=== PATIENT | female | born 1960 | race Caucasian/White ===

== ENCOUNTER 2017-01-16 13:55 | Emergency (ER) | payer OTHER ==
[2017-01-16] MEDS ORDERED: ONDANSETRON 4 MG TAB.RAPDIS PO ONE (14:48)
--- NOTE | 2017-01-16 14:53 | ER Document Report ---
ED Medical Screen (RME) - General Chief Complaint: Nausea/Vomiting Stated Complaint: NAUSEA, VOMITTING Time Seen by Provider: 01/16/17 14:43 Notes: Patient is complaining of a headache and vomiting. She is visiting from [place] and has a condition, CIDP, she was treated with IVIG weekly. Her symptoms are usually brought on by changes in the weather which she says happened on Friday and that is when she developed her headache and then yesterday, began vomiting and has been vomiting nonstop ever since. No diarrhea. No fevers. Patient says that her symptoms are relieved by Zofran or Compazine. History of appendectomy and cholecystectomy. TRAVEL OUTSIDE OF THE [place] IN LAST 30 DAYS: No - Related Data Allergies/Adverse Reactions: adhesive [Adhesive] Allergy (Verified 01/16/17 13:59) amoxicillin [Amoxicillin] Allergy (Verified 01/16/17 13:59) clindamycin [Clindamycin] Allergy (Verified 01/16/17 13:59) lincomycin [Lincomycin] Allergy (Verified 01/16/17 13:59) magnesium [Magnesium] Allergy (Verified 01/16/17 13:59) meloxicam [From Mobic] Allergy (Verified 01/16/17 13:59) sumatriptan [From Imitrex] Allergy (Verified 01/16/17 13:59) sumatriptan succinate [From Imitrex] Allergy (Verified 01/16/17 13:59) Past Medical History - Social History Drug Abuse: None Renal/ Medical History: Denies: Hx Peritoneal Dialysis Past Surgical History: Reports: Hx Appendectomy - Immunizations Hx Diphtheria, Pertussis, Tetanus Vaccination: Yes Physical Exam - Vital signs Vitals: Temp Pulse Resp BP Pulse Ox 97.9 F 96 16 145/93 H 96 01/16/17 13:59 01/16/17 13:59 01/16/17 13:59 01/16/17 13:59 01/16/17 13:59 Course - Vital Signs Vital signs: Temp Pulse Resp BP Pulse Ox 97.9 F 96 16 145/93 H 96 01/16/17 13:59 01/16/17 13:59 01/16/17 13:59 01/16/17 13:59 01/16/17 13:59
[2017-01-16] MEDS: NORMAL SALINE 1000 ML 1,000 ML IV PRN ×2 (16:13→16:47)
[2017-01-16] MEDS ORDERED: PROMETHAZINE HCL INJ 25 MG/1 ML VIAL IM ONE (16:28)
[2017-01-16 16:54] LABS: ABSOLUTE LYMPHOCYTES (AUTO) 1.3 10^3/uL (0.5-4.7); ABSOLUTE MONOCYTES (AUTO) 0.4 10^3/uL (0.1-1.4); ABSOLUTE NEUT (AUTO) 5.3 10^3/uL (1.7-8.2); BASOPHILS % (AUTO) 0.7 % (0-2); EOSINOPHILS % (AUTO) 0.1 % (0-6); HEMATOCRIT 40.3 % (36.0-47.0); HEMOGLOBIN 13.6 g/dL (12.0-15.5); HGB HCT DIFFERENCE 0.5; LYMPHOCYTES % (AUTO) 17.9 % (13-45); MEAN CORPUSCULAR HGB CONC 33.7 g/dL (32.0-36.0); MEAN CORPUSCULAR VOLUME 95 fl (80-97); MONOCYTES % (AUTO) 5.8 % (3-13); RED BLOOD COUNT 4.24 10^6/uL (3.72-5.28); RED CELL DISTRIBUTION WIDTH 14.8 % (11.5-14.0); SEGMENTED NEUTROPHILS % (AUTO) 75.5 % (42-78)
[2017-01-16 17:06] LABS: ALANINE AMINOTRANSFERASE 41 U/L (9-52); ALKALINE PHOSPHATASE 91 U/L (38-126); ANION GAP 10 (5-19); ASPARTATE AMINO TRANSFERASE 58 U/L (14-36); BILIRUBIN,DIRECT 0.4 mg/dL (0.0-0.4); BILIRUBIN,TOTAL 0.7 mg/dL (0.2-1.3); BLOOD UREA NITROGEN 16 mg/dL (7-20); CALCIUM 9.1 mg/dL (8.4-10.2); CARBON DIOXIDE 28 mmol/L (22-30); CHLORIDE 102 mmol/L (98-107); CREATININE RESULT 0.69 mg/dL (0.52-1.25); GLUCOSE 96 mg/dL (75-110); POTASSIUM 4.8 mmol/L (3.6-5.0); SODIUM 140.4 mmol/L (137-145); TOTAL PROTEIN 9.2 g/dL (6.3-8.2)
[2017-01-16] MEDS ORDERED: DIPHENHYDRAMINE HCL 50 MG/ML VIAL IV ONE (17:31)
[2017-01-16] MEDS ORDERED: METOCLOPRAMIDE HCL INJ/PF 10 MG/2 ML SDV IV ONE (17:31)
--- NOTE | 2017-01-16 18:43 | ER Document Report ---
ED GI/ - General Mode of Arrival: Ambulatory Information source: Patient TRAVEL OUTSIDE OF THE [place] IN LAST 30 DAYS: No <JARRELL HAWKINS - Last Filed: 01/16/17 19:30> <LAURO DUARTE - Last Filed: 01/16/17 20:46> - General Chief Complaint: Nausea/Vomiting Stated Complaint: NAUSEA, VOMITTING Time Seen by Provider: 01/16/17 14:43 Notes: Patient is a 56-year-old female with chronic demyelinating polyneuropathy who gets IVIG weekly who presents to the ER today for headache, nausea and vomiting for 2 days. Patient states that this happens to her whenever she gets IVIG and and travel down here to [place] from [place] where she lives, and going through any type of bad weather. She states that 3 days ago there was normal she was driving down here and she developed a headache afterwards, the next day developing the vomiting and the headache worsened. She states that this is exactly what happens when she goes through bad whether after getting IVIG and that she has been tapped 3 times for this never finding anything. She states that she used to be on migraine medications, but is no longer. She says she has had to get lumbar punctures before for this which were always negative. She denies fever/chills, diarrhea, neck pain. (JARRELL HAWKINS) - Related Data Allergies/Adverse Reactions: adhesive [Adhesive] Allergy (Verified 01/16/17 13:59) amoxicillin [Amoxicillin] Allergy (Verified 01/16/17 13:59) clindamycin [Clindamycin] Allergy (Verified 01/16/17 13:59) lincomycin [Lincomycin] Allergy (Verified 01/16/17 13:59) magnesium [Magnesium] Allergy (Verified 01/16/17 13:59) meloxicam [From Mobic] Allergy (Verified 01/16/17 13:59) sumatriptan [From Imitrex] Allergy (Verified 01/16/17 13:59) sumatriptan succinate [From Imitrex] Allergy (Verified 01/16/17 13:59) Past Medical History - General Information source: Patient - Social History Smoking Status: Unknown if Ever Smoked Drug Abuse: None Family History: Reviewed & Not Pertinent Patient has suicidal ideation: No Patient has homicidal ideation: No Renal/ Medical History: Denies: Hx Peritoneal Dialysis Past Surgical History: Reports: Hx Appendectomy - Immunizations Hx Diphtheria, Pertussis, Tetanus Vaccination: Yes <JARRELL HAWKINS - Last Filed: 01/16/17 19:30> Review of Systems - Review of Systems Constitutional: No symptoms reported EENT: No symptoms reported Cardiovascular: No symptoms reported Respiratory: No symptoms reported Gastrointestinal: See HPI Genitourinary: No symptoms reported Female Genitourinary: No symptoms reported Musculoskeletal: No symptoms reported Skin: No symptoms reported Hematologic/Lymphatic: No symptoms reported Neurological/Psychological: See HPI <JARRELL HAWKINS - Last Filed: 01/16/17 19:30> Physical Exam <JARRELL HAWKINS - Last Filed: 01/16/17 19:30> <LAURO DUARTE - Last Filed: 01/16/17 20:46> - Vital signs Vitals: Temp Pulse Resp BP Pulse Ox 97.9 F 96 16 145/93 H 96 01/16/17 13:59 01/16/17 13:59 01/16/17 13:59 01/16/17 13:59 01/16/17 13:59 - Notes Notes: PHYSICAL EXAMINATION: GENERAL: pale, vomiting, in mild acute distress. HEAD: Atraumatic, normocephalic. EYES: Pupils equal round and reactive to light, extraocular movements intact, sclera anicteric, conjunctiva are normal. NECK: Normal range of motion, supple without lymphadenopathy LUNGS: CTAB and equal. No wheezes rales or rhonchi. HEART: Regular rate and rhythm without murmurs ABDOMEN: Soft, no tenderness. No guarding, no rebound BACK: no vertebral tenderness, normal ROM GI/: no CVA tenderness NEUROLOGICAL: Cranial nerves grossly intact. Normal sensory/motor exams. Good and equal strength bilaterally, Kernig and Brudzinski's signs negative, Romberg' s test normal, normal heel to castillo testing PSYCH: Normal mood, normal affect. SKIN: Warm, Dry, normal turgor, no rashes or lesions noted (JARRELL HAWKINS) Course - Laboratory Result Diagrams: 01/16/17 16:37 01/16/17 16:37 <JARRELL HAWKINS - Last Filed: 01/16/17 19:30> - Laboratory Result Diagrams: 01/16/17 16:37 01/16/17 16:37 <LAURO DUARTE - Last Filed: 01/16/17 20:46> - Re-evaluation Re-evalutation: 01/16/17 19:25 labwork is unremarkable, pt's blood cell count is normal today, patient is afebrile with normal vital signs. 2 L of fluid IV was given, nausea medication , pain medication, patient still has a headache but has not vomited since arriving. She is no longer pale. Patient states that the headache is now her only complaint. She needs to leave [facility] to get [place] to have her IVIG tomorrow. 01/16/17 19:28 01/16/17 19:[address] Lyons who agrees that it doesn't appear pt needs to be tapped at this time, pt agrees, states this is her normal headache, dilaudid ordered. care handed over to Lauro Duarte PA-C. (JARRELL HAWKINS) - Vital Signs Vital signs: Temp Pulse Resp BP Pulse Ox 97.9 F 96 16 145/93 H 96 01/16/17 13:59 01/16/17 13:59 01/16/17 13:59 01/16/17 13:59 01/16/17 13:59 - Laboratory Laboratory results interpreted by me: 01/16/17 01/16/17 01/16/17 16:37 16:37 18:08 RDW 14.8 H AST 58 H Total Protein 9.2 H Urine Ketones TRACE H Discharge <JARRELL HAWKINS - Last Filed: 01/16/17 19:30> <LAURO DUARTE - Last Filed: 01/16/17 20:46> - Discharge Clinical Impression: Headache Qualifiers: Headache type: unspecified Headache chronicity pattern: acute headache Intractability: not intractable Qualified Code(s): R51 - Headache Nausea and vomiting Qualifiers: Vomiting type: unspecified Vomiting Intractability: non-intractable Qualified Code(s): R11.2 - Nausea with vomiting, unspecified Condition: Stable Disposition: HOME, SELF-CARE Instructions: Intravenous (IV) Fluids ([facility]), Vomiting ([facility]) Additional Instructions: Return immediately for any new or worsening symptoms. Follow up with primary care provider, call tomorrow to make followup appointment.
[2017-01-16] MEDS ORDERED: HYDROMORPHONE HCL INJ/PF 2 MG/ML AMPULE IV ONE (18:58)
[2017-01-16 19:02] LABS: APPEARANCE,URINE CLEAR; BILIRUBIN,URINE NEGATIVE (NEGATIVE); GLUCOSE, URINE NEGATIVE (NEGATIVE); KETONES,URINE TRACE mg/dL (NEGATIVE); LEUKOCYTE ESTERASE,URINE NEGATIVE (NEGATIVE); NITRITE,URINE NEGATIVE (NEGATIVE); PROTEIN,URINE NEGATIVE (NEGATIVE); URINE SPECIFIC GRAVITY 1.008; UROBILINOGEN,URINE NEGATIVE mg/dL (<2.0)
[2017-01-16] MEDS ORDERED: ONDANSETRON HCL INJ/PF 4 MG/2 ML SDV IV ONE (19:15)
[2017-01-16] MEDS ORDERED: ONDANSETRON ODT 4 MG TAB (6 TAB/DSPK) PO PRN (20:45)
[2017-01-16] MEDS ORDERED: HYDROCODONE/ACETAMINOPHEN 5-325 MG 6 TAB/DSPK PO PRN (20:46)
[2017-01-16 21:11] VITALS: BP 119/67
== END 2017-01-16 21:25 | disposition home or self-care (01) ==
LOC: ER 13:55
DX: R11.2 Nausea with vomiting, unspecified (principal); R51 Headache; R23.1 Pallor; G61.81 Chronic inflammatory demyelinating polyneuritis; Z79.899 Other long term (current) drug therapy; Z88.0 Allergy status to penicillin; Z88.1 Allergy status to other antibiotic agents; Z91.048 Other nonmedicinal substance allergy status; Z88.8 Allergy status to other drugs, medicaments and biological substances; Z88.6 Allergy status to analgesic agent
CPT/HCPCS: 99283; 96372; 96361; 96374; 96375; 36415; 85025; 80053; 81001; J1200; S0119; J2765; J1170; J2550; J2405; J7030

== ENCOUNTER 2020-08-06 20:45 | Emergency (ER) | payer MEDICARE, OTHER ==
[2020-08-06] MEDS ORDERED: NORMAL SALINE 1000 ML 1,000 ML IV ONE (21:33)
[2020-08-06] MEDS ORDERED: DIPHENHYDRAMINE HCL 50 MG/ML VIAL IV ONE (21:33)
[2020-08-06] MEDS ORDERED: KETOROLAC TROMETHAMINE INJ/PF 30 MG/1 ML SDV IV ONE (21:33)
[2020-08-06] MEDS ORDERED: METOCLOPRAMIDE HCL INJ/PF 10 MG/2 ML SDV IV ONE (21:33)
--- NOTE | 2020-08-06 21:39 | ER Document Report ---
ED Medical Screen (RME) - General Chief Complaint: Headache Stated Complaint: SEVERE MIGRAINE, NAUSEA Time Seen by Provider: 08/06/20 21:25 TRAVEL OUTSIDE OF THE [place] IN LAST 30 DAYS: No - HPI Notes: Patient is a 60 y/o female with a hx of migraine headaches who presents with a migraine that began two days ago. Patient states her symptoms are typical of her usual migraine. She reports nausea, vomiting and photophobia. She denies chest pain, shortness of breath, blurred vision, weakness or numbness. She is not currently taking any medication for her migraines. She has a doctor's appointment this coming and a neurology appointment in August. - Related Data Allergies/Adverse Reactions: adhesive [Adhesive] Allergy (Verified 01/16/17 13:59) amoxicillin [Amoxicillin] Allergy (Verified 01/16/17 13:59) clindamycin [Clindamycin] Allergy (Verified 01/16/17 13:59) lincomycin [Lincomycin] Allergy (Verified 01/16/17 13:59) magnesium [Magnesium] Allergy (Verified 01/16/17 13:59) meloxicam [From Mobic] Allergy (Verified 01/16/17 13:59) sumatriptan [From Imitrex] Allergy (Verified 01/16/17 13:59) sumatriptan succinate [From Imitrex] Allergy (Verified 01/16/17 13:59) Past Medical History Renal/ Medical History: Denies: Hx Peritoneal Dialysis Past Surgical History: Reports: Hx Appendectomy - Immunizations Hx Diphtheria, Pertussis, Tetanus Vaccination: Yes Physical Exam - Vital signs Vitals: Temp Pulse Resp BP Pulse Ox 98.0 F 116 H 16 136/97 H 94 08/06/20 21:09 08/06/20 21:09 08/06/20 21:09 08/06/20 21:09 08/06/20 21:09 - General In distress: Mild - Respiratory Respiratory status: No respiratory distress - Neurological Cognition: Normal Orientation: AAOx4 Course - Re-evaluation Re-evalutation: I have greeted and performed a rapid initial assessment of this patient. A comprehensive ED assessment and evaluation of the patient, analysis of test results and completion of medical decision making process will be conducted by an additional ED providers. - Vital Signs Vital signs: Temp Pulse Resp BP Pulse Ox 98.0 F 116 H 16 136/97 H 94 08/06/20 21:09 08/06/20 21:09 08/06/20 21:09 08/06/20 21:09 08/06/20 21:09
--- NOTE | 2020-08-06 22:58 | ER Document Report ---
ED Headache - General Chief Complaint: Headache Stated Complaint: SEVERE MIGRAINE, NAUSEA Time Seen by Provider: 08/06/20 21:25 Mode of Arrival: Wheelchair Information source: Patient, Relative - Notes: 60-year-old woman presenting to the emergency department with a 1 week history of headache. She has a long history of migraine headaches and apparently changes in barometric pressure and also inability to keep down her medications has led to exacerbation of a severe migraine headache with photophobia, nausea and vomiting with throbbing head pain. She has had a long history of migraines and is usually able to control things with Phenergan and her usual medication. TRAVEL OUTSIDE OF THE [place] IN LAST 30 DAYS: No - Related Data Allergies/Adverse Reactions: adhesive [Adhesive] Allergy (Verified 01/16/17 13:59) amoxicillin [Amoxicillin] Allergy (Verified 01/16/17 13:59) clindamycin [Clindamycin] Allergy (Verified 01/16/17 13:59) lincomycin [Lincomycin] Allergy (Verified 01/16/17 13:59) magnesium [Magnesium] Allergy (Verified 01/16/17 13:59) meloxicam [From Mobic] Allergy (Verified 01/16/17 13:59) sumatriptan [From Imitrex] Allergy (Verified 01/16/17 13:59) sumatriptan succinate [From Imitrex] Allergy (Verified 01/16/17 13:59) Home Medications: Hydroxychloroquine, Vitamin D, Lisinopril, Nortriptyline, Valacyclovir, Fluoxetine, Topiramate Past Medical History - Social History Smoking Status: Never Smoker Family History: Reviewed & Not Pertinent Renal/ Medical History: Denies: Hx Peritoneal Dialysis Past Surgical History: Reports: Hx Appendectomy - Immunizations Hx Diphtheria, Pertussis, Tetanus Vaccination: Yes Review of Systems - Review of Systems Notes: Constitutional: Negative for fever. HENT: Negative for sore throat. Eyes: Negative for visual changes. Cardiovascular: Negative for chest pain. Respiratory: Negative for shortness of breath. Gastrointestinal: Negative for abdominal pain, vomiting or diarrhea. Genitourinary: Negative for dysuria. Musculoskeletal: Negative for back pain. Skin: Negative for rash. Neurological: See HPI. 10 point ROS negative except as marked above and in HPI. Physical Exam - Vital signs Vitals: Temp Pulse Resp BP Pulse Ox 98.0 F 116 H 16 136/97 H 94 08/06/20 21:09 08/06/20 21:09 08/06/20 21:09 08/06/20 21:09 08/06/20 21:09 - Notes Notes: PHYSICAL EXAMINATION: Physical Exam: General: Very uncomfortable appearing 60-year-old woman with severe headache and photophobia HEENT: NC/AT, pupils equal round and reactive to light, MM moist,nares clear, oropharynx clear, airway patent Neck: supple, no adenopathy, no masses. Good range of motion + photophobia Lungs: clear, no wheezing, no rales no rhonchi CVS: Regular rate and rhythm no murmur gallop or rub Abdomen: Soft, active, nontender, no masses, no hepatosplenomegaly Ext: No edema, clubbing or cyanosis. Neuro: Alert and responsive, moving all 4 extremities on command, cranial nerves intact, no focal findings Skin: Intact no open lesions, no rash Course - Re-evaluation Re-evalutation: 08/07/20 00:17 Patient was given Benadryl, Toradol, Reglan and a liter of normal saline with resolution of the migraine headache and nausea. She feels much better. I am prescribing Phenergan suppositories and she will continue the migraine Excedrin for recurrence if needed. The patient and her notes that she has an appointment with primary care doctor on 22 August. She is a new patient to the area and has not established with primary care or neurology. - Vital Signs Vital signs: Temp Pulse Resp BP Pulse Ox 98.0 F 116 H 16 136/97 H 94 08/06/20 21:09 08/06/20 21:09 08/06/20 21:09 08/06/20 21:09 08/06/20 21:09 - Laboratory Results Critical Laboratory Results Reviewed: No Critical Results - Radiology Results Critical Radiology Results Reviewed: No Critical Results Discharge - Discharge Clinical Impression: Migraine headache Qualifiers: Migraine type: unspecified Status migrainosus presence: without status migrainosus Intractability: not intractable Qualified Code(s): G43.909 - Migraine, unspecified, not intractable, without status migrainosus Condition: Stable Disposition: HOME, SELF-CARE Instructions: Antinausea Medication ([facility]), Headache ([facility]) Additional Instructions: You were seen in the emergency department with a history of migraine headaches and nausea and vomiting. She has continued to have severe symptoms with nausea and light sensitivity. You were given the Benadryl and Toradol with IV fluids in the emergency department. Please continue the Excedrin Migraine, you have been given a prescription for Phenergan suppositories for nausea. HOME CARE INSTRUCTIONS & INFORMATION: Thank you for choosing us for your medical needs. We hope you're satisfied with the care you received. After you leave, you must properly care for your problem and, at the same time, observe its progress. Any condition can change. Some illnesses can change rapidly over hours or days. If your condition worsens, return to the Emergency Department or see your physician promptly. ABOUT YOUR X-RAYS AND EKG'S: If you had an EKG or X-rays taken, they have been read by the Emergency Physician. The X-rays and EKG's will also be read by a Radiologist or Vegetable Farm Manager within 24 hours. If discrepancies are noted, you will be notified by telephone. Please be certain the ED has a correct telephone number & address where you can be reached. Also, realize that some fractures or abnormalities do not show up on initial X-rays. If your symptoms continue, see your physician. ABOUT YOUR LABORATORY TEST: If you had laboratory tests, the results have been reviewed by the Emergency Physician. Some test results (for example cultures) may not be available for several days. You will be contacted if any test result shows you need additional treatment. Please be certain the ED has a correct telephone number and address where you can be reached. ABOUT YOUR MEDICATIONS: You will receive instructions on how to take your medicine on the prescription label you receive. Additional information may be provided by the Pharmacy. If you have questions afterwards, call the ED for clarification or further instructions. Some prescribed medications may cause drowsiness. Do not perform tasks such as driving a car or operating machinery without consulting your Pharmacist. If you feel you need a refill of pain medication, your condition will need re-evaluation. Please do not call for a refill of any medication. ABOUT YOUR SIGNATURE: Signature of this document acknowledges to followin. Understanding that you received emergency treatment and that you may be r eleased before al medical problems are known or treated. Please be certain the ED has a correct phone number & address where you can be reached. 2. Acknowledgement that you will arrange for follow-up care as recommended. 3. Authorization for the Emergency Physician to provide information to your follow-up Physician in order to maximize your care. AT ANY TIME, IF YOUR SYMPTOMS CHANGE SIGNIFICANTLY OR WORSEN OR YOU DEVELOP NEW SYMPTOMS, RETURN TO THE EMERGENCY DEPARTMENT IMMEDIATELY FOR RE-EVALUATION. OUR GOAL IS TO PROVIDE EXCELLENT MEDICAL CARE! WE HOPE THAT WE HAVE MET YOUR EXPECTATIONS DURING YOUR EMERGENCY DEPARTMENT VISIT AND THAT YOU FEEL YOU HAVE RECEIVED EXCELLENT CARE! Prescriptions: Promethazine HCl [Phenergan 25 mg Supp.rect] 1 supp OR Q6H #12 supp.rect
[2020-08-07 00:45] VITALS: BP 124/74
== END 2020-08-07 00:40 | disposition home or self-care (01) ==
LOC: ER 20:45
DX: G43.909 Migraine, unspecified, not intractable, without status migrainosus (principal); H53.149 Visual discomfort, unspecified; R11.2 Nausea with vomiting, unspecified; Z79.899 Other long term (current) drug therapy; Z91.048 Other nonmedicinal substance allergy status; Z88.0 Allergy status to penicillin; Z88.1 Allergy status to other antibiotic agents; Z88.8 Allergy status to other drugs, medicaments and biological substances; Z88.6 Allergy status to analgesic agent
CPT/HCPCS: 99284; 96361; 96374; 96375; J1200; J1885; J2765; J7030